=== PATIENT | male | born 1995 | race Caucasian/White ===

== ENCOUNTER 2018-08-14 18:33 | Emergency (ER) | payer SELFPAY ==
[2018-08-14] MEDS ORDERED: KETOROLAC TROMETHAMINE 60 MG/2 ML SDV IM ONE (19:18)
[2018-08-14] MEDS ORDERED: PREDNISONE 20 MG TABLET PO ONE (19:19)
--- NOTE | 2018-08-14 19:21 | ER Document Report ---
ED Medical Screen (RME) - General Chief Complaint: Toothache Stated Complaint: TOOTH PAIN/HEADACHE Time Seen by Provider: 08/14/18 19:17 Notes: 22 years old female with a carious tooth presents today with toothache sore throat fever and right ear pain. Going on for last 2 days. Examination-pharyngotonsillar mucosa was diffusely erythematous with enlargement of the tonsil and exudates. Positive for right upper cervical lymphadenopathy. Bilateral ear wax. TRAVEL OUTSIDE OF THE [place] IN LAST 30 DAYS: No - Related Data Allergies/Adverse Reactions: No Known Allergies Allergy (Verified 08/14/18 18:37) Past Medical History - Social History Chew tobacco use (# tins/day): No Frequency of alcohol use: None Drug Abuse: None Renal/ Medical History: Denies: Hx Peritoneal Dialysis - Immunizations Immunizations up to date: Yes Hx Diphtheria, Pertussis, Tetanus Vaccination: Yes Physical Exam - Vital signs Vitals: Temp Pulse Resp BP Pulse Ox 102.4 F H 94 14 131/72 H 98 08/14/18 18:44 08/14/18 18:44 08/14/18 18:44 08/14/18 18:44 08/14/18 18:44 Course - Vital Signs Vital signs: Temp Pulse Resp BP Pulse Ox 102.4 F H 94 14 131/72 H 98 08/14/18 18:44 08/14/18 18:44 08/14/18 18:44 08/14/18 18:44 08/14/18 18:44
[2018-08-14 19:54] LABS: HEMATOCRIT 47.2 % (37.9-51.0); HEMOGLOBIN 16.1 g/dL (13.5-17.0); MEAN CORPUSCULAR HEMOGLOBIN 31.2 pg (27.0-33.4); MEAN CORPUSCULAR HGB CONC 34.2 g/dL (32.0-36.0); MEAN CORPUSCULAR VOLUME 92 fl (80-97); PLATELET COUNT 143 10^3/uL (150-450); RED BLOOD COUNT 5.16 10^6/uL (4.35-5.55); WHITE BLOOD COUNT 25.1 10^3/uL (4.0-10.5)
[2018-08-14 20:11] LABS: ABSOLUTE LYMPHOCYTES# (MANUAL) 19.6 10^3/uL (0.5-4.7); ABSOLUTE NEUTROPHILS# (MANUAL) 4.5 10^3/uL (1.7-8.2); BASOPHILS % (MANUAL) 0 % (0-2); EOSINOPHILS % (MANUAL) 0 % (0-6); LYMPHOCYTES % (MANUAL) 17 % (13-45); MONOCYTES % (MANUAL) 4 % (3-13); SEGMENTED NEUTROPHILS % (MAN) 18 % (42-78); TOTAL CELLS COUNTED 100
[2018-08-14 20:15] LABS: PLATELET COMMENT DECREASED; TOXIC GRANULATION SLIGHT
[2018-08-14] MEDS ORDERED: DEXAMETHASONE SOD PHOS INJ 10 MG/1 ML VIAL IM ONE (20:45)
[2018-08-14] MEDS ORDERED: ACETAMINOPHEN 325 MG TABLET PO ONE (20:46)
--- NOTE | 2018-08-14 20:51 | ER Document Report ---
ED General - General Chief Complaint: Toothache Stated Complaint: TOOTH PAIN/HEADACHE Time Seen by Provider: 08/14/18 19:17 Notes: Patient is a 22-year-old male without chronic medical problems who presents with complaints of pain to his tooth #21 as well as sore throat and pain with swallowing. He states that the tooth has been painful for several weeks, has been problematic in the past but he has never seen a dentist. He describes it as a dull, throbbing, constant pain worsened by eating. He notes that for the past 2 days he has had fever, sore throat and swollen lymph nodes on the right side of his neck that are painful. He has not trying to improve his symptoms. Nothing worsens his symptoms. He denies being unable to swallow or having any difficulty breathing. He has not seen his primary care doctor regarding these concerns. He is uncertain of whether or not he has had sick contacts. TRAVEL OUTSIDE OF THE [place] IN LAST 30 DAYS: No - Related Data Allergies/Adverse Reactions: No Known Allergies Allergy (Verified 08/14/18 18:37) Past Medical History - General Information source: Patient - Social History Smoking Status: Never Smoker Chew tobacco use (# tins/day): No Frequency of alcohol use: None Drug Abuse: None Lives with: Spouse/Significant other Family History: Reviewed & Not Pertinent Patient has suicidal ideation: No Patient has homicidal ideation: No Renal/ Medical History: Denies: Hx Peritoneal Dialysis - Immunizations Immunizations up to date: Yes Hx Diphtheria, Pertussis, Tetanus Vaccination: Yes Review of Systems - Review of Systems Notes: Constitutional: Positive for fever. HENT: Positive for sore throat. Eyes: Negative for visual changes. Cardiovascular: Negative for chest pain. Respiratory: Negative for shortness of breath. Gastrointestinal: Negative for abdominal pain, vomiting or diarrhea. Genitourinary: Negative for dysuria. Musculoskeletal: Negative for back pain. Skin: Negative for rash. Neurological: Negative for headaches, weakness or numbness. 10 point ROS negative except as marked above and in HPI. Physical Exam - Vital signs Vitals: Temp Pulse Resp BP Pulse Ox 102.4 F H 94 14 131/72 H 98 08/14/18 18:44 08/14/18 18:44 08/14/18 18:44 08/14/18 18:44 08/14/18 18:44 Interpretation: Febrile Notes: PHYSICAL EXAMINATION: GENERAL: Appears moderately uncomfortable but in no acute distress HEAD: Atraumatic, normocephalic. EYES: Pupils equal round and reactive to light, extraocular movements intact, sclera anicteric, conjunctiva are normal. ENT: nares patent, diffuse pharyngeal erythema with hypertrophy of the tonsils bilaterally although the uvula remains midline and the airway is widely patent. Moderately dry mucous membranes. NECK: Normal range of motion, right-sided anterior cervical chain lymphadenopathy that is tender to palpation LUNGS: Breath sounds clear to auscultation bilaterally and equal. No wheezes rales or rhonchi. HEART: Regular rate and rhythm without murmurs ABDOMEN: Soft, nontender, normoactive bowel sounds. No guarding, no rebound. No masses appreciated. EXTREMITIES: Normal range of motion, no pitting or edema. No cyanosis. NEUROLOGICAL: No focal neurological deficits. Moves all extremities spontaneously and on command. PSYCH: Normal mood, normal affect. SKIN: Warm, Dry, normal turgor, no rashes or lesions noted. Course - Re-evaluation Re-evalutation: 08/14/18 20:47 Patient presents with 2 distinct complaints 1: Sore throat and fever: Patient has a exam and history most consistent with acute mononucleosis. Mild test is positive. Patient's neck pain appears to be most consistent from anterior cervical chain lymphadenopathy which is appreciable on exam. Uvula is midline. No unilateral tonsillar hypertrophy to suggest a peritonsillar abscess. Patient is able to swallow. No stridor or airway compromise. Patient has been given dexamethasone here in the emergency department. Symptomatic management instructions given for home. 2: Cracked tooth #29: This is a long-standing issue, patient states that has become more painful in the past several days. There is no evidence of associated infection to the tooth, evidence of an apical abscess or gumline infection. Patient has been started on clindamycin and has been instructed that he will require follow-up with a dentist for definitive management. I do not believe that this dental finding is associated with the patient's fever and leukocytosis. At this time will discharge with return precautions and follow-up recommendations. Verbal discharge instructions given a the bedside and opportunity for questions given. Medication warnings reviewed. Patient is in agreement with this plan and has verbalized understanding of return precautions and the need for primary care follow-up in the next 24-72 hours. - Vital Signs Vital signs: Temp Pulse Resp BP Pulse Ox 98.7 F 85 16 124/62 95 08/14/18 21:21 08/14/18 21:21 08/14/18 21:21 08/14/18 21:21 08/14/18 21:21 - Laboratory Result Diagrams: 08/14/18 19:37 Laboratory results interpreted by me: 08/14/18 08/14/18 19:37 19:37 WBC 25.1 H Plt Count 143 L Seg Neuts % (Manual) 18 L Abs Lymphs (Manual) 19.6 H Monotest POSITIVE H Discharge - Discharge Clinical Impression: Mononucleosis, Sore throat, Pain, dental Fever Qualifiers: Fever type: unspecified Qualified Code(s): R50.9 - Fever, unspecified Condition: Good Disposition: HOME, SELF-CARE Additional Instructions: Your seen today for fever and sore throat. Your mono test is positive. This is a viral infection, specifically the Niall-Jones virus. There is no specific treatment other than symptomatic care including the dose of steroids you have been given here in the emergency department. You may continue to have sore throat feel fatigued, and have fever for the next several days to even a week or more. Take Tylenol 1000 mg or ibuprofen 600 mg every 6 hours for fever and body aches. Ensure to keep hydrated with fluids such as Pedialyte or Gatorade. Do not play contact sports until you have been cleared by your primary care doctor as this could cause rupture of your spleen. In regards to your tooth: Your being started on antibiotic called clindamycin for treatment but will require definitive follow-up with a dentist. You need to return to the emergency department immediately if you begin having difficulty breathing, become unable to swallow even fluids, have worsening pain , become lethargic, become confused, have weakness, numbness, or any other worrisome symptoms. Please follow-up with your general doctor within the next 24-48 hours. Prescriptions: Clindamycin HCl 300 mg PO TID #30 capsule Forms: Return to Work
[2018-08-14 21:24] VITALS: BP 124/62
[2018-08-15 14:00] LABS: PATH REVIEW PATHOLOGIST REVIEWED
== END 2018-08-14 21:46 | disposition home or self-care (01) ==
LOC: ER 18:33
DX: B27.90 Infectious mononucleosis, unspecified without complication (principal); J02.9 Acute pharyngitis, unspecified; K08.9 Disorder of teeth and supporting structures, unspecified; R51 Headache; R50.9 Fever, unspecified
CPT/HCPCS: 99283; 96372; 36415; 87070; 87880; 85025; 86308; J1885; J7512; J1100